=== PATIENT | female | born 1925 | race Asian ===

== ENCOUNTER → 2016-11-30 | Outpatient (CLI) | payer MEDICARE, MEDICAID ==
[~2016-11-30] MED LIST: ACET-784 PO; AMLO2.5T PO; ASPI-556 PO; CALC1TAB15 PO; D3; FISH OIL 1,2001 CA1 PO; FLUT1DIS5 IH; ISOS30TA6 PO; METF500T4 PO; PANT40TA25 PO; PIOG45TA4 PO; PRAV20TA4 PO; PRED10TA3 PO; VALS320T2 PO
== END | disposition home or self-care (01) ==
LOC: RADPV 13:15
PROVIDERS: ATTEND Internal Medicine
DX: M16.12 Unilateral primary osteoarthritis, left hip (principal); I70.202 Unspecified atherosclerosis of native arteries of extremities, left leg; M17.12 Unilateral primary osteoarthritis, left knee; M11.262 Other chondrocalcinosis, left knee; M79.662 Pain in left lower leg
CPT/HCPCS: 73552